=== PATIENT | female | born 1990 | race Caucasian/White ===

== ENCOUNTER 2019-11-06 13:05 | Emergency (ER) | payer MEDICAID ==
[~2019-11-06] VITALS: Ht 162.6 cm; Wt 54.4 kg
[2019-11-06 13:29] VITALS: BP 128/75
--- NOTE | 2019-11-06 13:40 | NUR ---
PUJA BROWNE AT BEDSIDE FOR EVAL
--- NOTE | 2019-11-06 13:52 | NUR ---
MAT CUTTER AT BEDSIDE FOR BLOOD DRAW.
[2019-11-06] MEDS ORDERED: ACETAMINOPHEN ES 500 MG TABLET ONE (13:54)
[2019-11-06] MEDS ORDERED: ACETAMINOPHEN 325 MG TABLET PO ONE (14:00)
[2019-11-06 14:38] LABS: MONOTEST NEGATIVE (NEGATIVE)
--- NOTE | 2019-11-06 14:55 | NUR ---
PT. VERBALIZED UNDERSTANDING OF AFTERCARE INSTRUCTIONS.Patient discharged to home in stable condition. Written and verbal after care instructions given. Patient verbalizes understanding of instruction.
== END 2019-11-06 14:56 | disposition home or self-care (01) ==
LOC: ER 13:11
DX: I88.9 Nonspecific lymphadenitis, unspecified (principal)
CPT/HCPCS: 36415; 86308-TC